=== PATIENT | male | born 1965 | race Caucasian/White ===

== ENCOUNTER 2018-02-02 09:25 | Day surgery (SDC) | payer OTHER ==
[2018-02-02] MEDS ORDERED: FENTAnyl 50 MCG/ML VIAL (10:40)
[2018-02-02] MEDS ORDERED: MIDAZOLAM 1 MG/ML 2 ML INJ ×2 (10:40)
== END 2018-02-02 12:01 | disposition home or self-care (01) ==
LOC: GIL 09:25
DX: Z12.11 Encounter for screening for malignant neoplasm of colon (principal); K64.8 Other hemorrhoids
CPT/HCPCS: 45378